=== PATIENT | male | born 1995 ===

== ENCOUNTER 2024-05-19 13:10 | Emergency (ER) | payer BC ==
[2024-05-19] MEDS: Acetaminophen 500 MG Tab PO ONE (17:15)
== END 2024-05-19 17:48 | disposition home or self-care (01) ==
LOC: MW.ED 13:10
DX: S93.401A Sprain of unspecified ligament of right ankle, initial encounter (principal); W00.0XXA Fall on same level due to ice and snow, initial encounter
CPT/HCPCS: 29515; 73590; 73610; 99283; A9270